=== PATIENT | male | born 1960 | race Caucasian/White ===

== ENCOUNTER 2018-11-04 10:36 | Emergency (ER) | payer OTHER ==
[2018-11-04 10:48] VITALS: BP 141/86; PULSE 74; RESP 18; TEMP 98.4
[2018-11-04] MEDS ORDERED: ACET/COD 300 MG/30 MG STARTER PACK 6 TAB BTL PO STA (11:30)
[2018-11-04] MEDS ORDERED: KETOROLAC 60 MG/2 ML VIAL IM STA (11:30)
[2018-11-04] MEDS ORDERED: CYCLOBENZAPRINE 10MG STARTER 3 TAB BTL PO STA (11:30)
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
== END 2018-11-04 12:05 | disposition home or self-care (01) ==
LOC: EC 10:36
DX: S39.012A Strain of muscle, fascia and tendon of lower back, initial encounter (principal); J30.2 Other seasonal allergic rhinitis; M62.838 Other muscle spasm; Z79.899 Other long term (current) drug therapy; X58.XXXA Exposure to other specified factors, initial encounter
CPT/HCPCS: 99283; 96372; J1885